=== PATIENT | female | born 1935 | race Caucasian/White ===

== ENCOUNTER 2017-08-18 01:13 | Outpatient (CLI) | payer MEDICARE, OTHER ==
[~2017-08-18 01:13] MED LIST: ASCO-205 PO; ASCO-22 PO; ASPI-611 PO; CHOL2000 PO; CHRO400T10 PO; CRAN500C3 PO; FISH OIL 500 M1 EACH PO; FLAX100025 PO; INSU100I9 SQ; INSU100V9 SQ; ISOS30TA6 PO; LACT1CAP67 PO; LEVO75TA7 PO; LISI-604 PO; MULT1TAB74 PO; RANI150C4 PO; ROSU5TAB PO; SELE200T25 PO; SIMV40TA PO; [UNRECOGNIZED DRUG - CODE] PO
== END 2017-08-18 23:59 | disposition home or self-care (01) ==
LOC: DIABETIC 01:13
PROVIDERS: ATTEND Specialist
DX: E11.65 Type 2 diabetes mellitus with hyperglycemia (principal); J44.9 Chronic obstructive pulmonary disease, unspecified; I10 Essential (primary) hypertension

== ENCOUNTER 2017-09-01 12:34 | Inpatient (IN) | payer MEDICARE, OTHER ==
[2017-09-01] VITALS (10 sets, daily range): BP systolic 132–188; BP diastolic 41–73
[~2017-09-01] VITALS: Ht 162.6 cm; Wt 74.5 kg
[2017-09-01 13:12] LABS: BASOPHILS # (AUTO) 0.1 X10'3 (0-0.2); BASOPHILS % (AUTO) 0.8 % (0-1); EOSINOPHILS # (AUTO) 0.2 X10'3 (0-0.9); EOSINOPHILS % (AUTO) 2.2 % (0-6); HEMATOCRIT 38.5 % (35.0-45.0); HEMOGLOBIN 13.4 g/dl (12.0-16.0); LYMPHOCYTES # (AUTO) 1.9 X10'3 (1.1-4.8); LYMPHOCYTES % (AUTO) 24.6 % (21-51); MEAN CORPUSCULAR HEMOGLOBIN 31.5 PG (27.0-31.0); MEAN CORPUSCULAR HGB CONC 34.9 % (33.0-36.5); MEAN CORPUSCULAR VOLUME 90.4 FL (78-98); MEAN PLATELET VOLUME 8.7 FL (7.4-10.4); MONOCYTES # (AUTO) 0.7 X10'3 (0-0.9); MONOCYTES % (AUTO) 8.8 % (2-12); NEUTROPHILS # (AUTO) 4.8 X10'3 (1.8-7.7); NEUTROPHILS % (AUTO) 63.6 % (42-75); PLATELET COUNT 292 X10'3 (140-440); RED BLOOD COUNT 4.26 X10'6 (4.20-5.60); RED CELL DISTRIBUTION WIDTH 13.8 % (11.5-14.5); WHITE BLOOD COUNT 7.5 X10'3 (4.5-11.0)
[2017-09-01 13:22] LABS: PARTIAL THROMBOPLASTIN TIME 26 SECONDS (22-32); PROTHROMBIN TIME 10.1 SECONDS (9.0-12.0)
[2017-09-01 13:36] LABS: ALANINE AMINOTRANSFERASE 30 U/L (12-78); ALBUMIN 3.4 G/DL (3.4-5.0); ALBUMIN/GLOBULIN RATIO 0.8 (1.1-1.5); ANION GAP 8 (8-16); ASPARTATE AMINO TRANSFERASE 19 U/L (10-37); BILIRUBIN,TOTAL 0.3 MG/DL (0.1-1.0); BLOOD UREA NITROGEN 25 MG/DL (7-18); BUN/CREATININE RATIO 22.7 (6.6-38.0); CHLORIDE 99 MMOL/L (99-107); GLUCOSE 128 MG/DL (70-104); POTASSIUM 4.3 MMOL/L (3.5-5.1); SODIUM 135 MMOL/L (135-145); TOTAL CARBON DIOXIDE 28.1 MMOL/L (24-32); TOTAL PROTEIN 7.5 G/DL (6.4-8.2); eGFR 48 ML/MIN
[2017-09-01 13:37] LABS: ALKALINE PHOSPHATASE 72 IU/L (46-116)
[2017-09-01] MEDS ORDERED: mag hydrox/Alum hydrox/simeth 30ml oral suspension PO PRN (14:10)
[2017-09-01] MEDS: normal saline 1000ml 1,000 ML IV SCH (14:10)
[2017-09-01] MEDS ORDERED: acetaminophen 325mg tablet PO PRN (14:10)
[2017-09-01] MEDS ORDERED: HYDROcodone/acetaminophen 5mg/325mg tablet PO PRN (14:10)
[2017-09-01] MEDS ORDERED: magnesium 2GM in 50ml NS 50 ML IV PRN (14:10)
[2017-09-01] MEDS ORDERED: potassium Cl 20 mEq SR tablet PO PRN ×2 (14:10)
[2017-09-01] MEDS ORDERED: magnesium Cl slow-release 64mg tablet PO PRN (14:10)
[2017-09-01] MEDS ORDERED: magnesium 4gm in 100ml NS 100 ML IV PRN (14:10)
[2017-09-01] MEDS ORDERED: potassium Cl 40MEQ/NS 500ml 500 ML IV PRN ×2 (14:10)
[2017-09-01] MEDS ORDERED: magnesium hydroxide 30ml (MOM) UD suspension PO PRN (14:10)
[2017-09-01] MEDS ORDERED: HYDROcodone/acetaminophen 10/325mg tab PO PRN (14:10)
[2017-09-01] MEDS ORDERED: ondansetron/PF 4mg/2ml inj IV PRN (14:10)
[2017-09-01] MEDS ORDERED: morphine 2 MG/ML inj. syringe IV PRN ×2 (14:10)
[2017-09-01] MEDS ORDERED: enoxaparin 100mg/ml syringe SUBCUT ONE (14:15)
[2017-09-01] MEDS ORDERED: normal saline 1000ML IV soln IVB ONE (14:15)
[2017-09-01] MEDS ORDERED: nitroGLYCERIN 0.2mg/hour patch TD ONE (14:15)
[2017-09-01] MEDS ORDERED: dextrose 50%-water 50ml dispensing syringe IV PRN ×2 (14:20)
[2017-09-01] MEDS ORDERED: dextrose ORAL solution 15 GM/59 ML bottle PO PRN ×2 (14:20)
[2017-09-01] MEDS ORDERED: MESSAGE TO PHARMACY PO ONE (14:20)
[2017-09-01] MEDS ORDERED: glucagon, human recombinant 1mg kit SUBCUT PRN (14:20)
[2017-09-01] MEDS ORDERED: insulin Lispro (HumaLOG) vial - multi-dose SQ SCH (14:20)
[2017-09-01] MEDS ORDERED: traMADol 50MG tablet PO PRN ×2 (14:50)
[2017-09-01 15:09] LABS: HEMOGLOBIN A1C 7.4 % (4.5-6.2)
[2017-09-01] MEDS ORDERED: nitroGLYCERIN-Tridil 50MG/D5W 250 ML IV ONE (16:49)
[2017-09-01] MEDS ORDERED: iohexol 350 MG/ML 50ML vial IV ONE (16:50)
[2017-09-01] MEDS ORDERED: LIDOcaine 1%/PF (10mg/ml) 5ml vial ONE ×3 (16:50→17:58)
[2017-09-01] MEDS ORDERED: heparin 1,000unit/ml 10ml vial 10 ML ONE (16:51)
[2017-09-01] MEDS ORDERED: iohexol 350MG/ML 100ml bottle IV ONE (16:51)
[2017-09-01] MEDS ORDERED: midazolam 2 mg/2 ml injection ONE (17:18)
[2017-09-01] MEDS ORDERED: fentaNYL/PF 50MCG/1 ML 2ML syringe ONE (17:18)
[2017-09-01] MEDS: lactobacillus rhamnosus 10,000 MMU CELLS/CAPSULE PO SCH (17:30)
[2017-09-01] MEDS ORDERED: diltiazem 5mg/ml 5ml inj. IV ONE (18:33)
[2017-09-01 18:40] LABS: ISTAT Hct MIX 34 %PCV (35-48); ISTAT O2 SATURATION MIX VENOUS 60 % (60-80); ISTAT SOURCE MIX
[2017-09-01] MEDS ORDERED: heparin, porcine 5000 units/ml vial SQ SCH (20:00)
[2017-09-01] MEDS ORDERED: acetylcysteine 200 MG/ml 4ml vial PO ONE (20:00)
[2017-09-01] MEDS ORDERED: sodium bicarbonate (8.4%) inj. 150 MEQ in sodium chloride 0.45% 1,000 ML IV ONE (20:35)
[2017-09-01] MEDS: docusate sod 100mg capsule PO SCH (20:58)
[2017-09-01] MEDS ORDERED: insulin glargine (Lantus) pen - multi-dose SQ SCH (21:00)
[2017-09-01] MEDS ORDERED: temazepam 15mg capsule PO PRN (21:00)
[2017-09-01] MEDS: acetylcysteine 200 MG/ml 4ml vial PO SCH (21:22)
[2017-09-01] MEDS: acetaminophen 325mg tablet PO PRN (22:25)
[2017-09-02 01:09] LABS: BASOPHILS # (AUTO) 0.1 X10'3 (0-0.2); BASOPHILS % (AUTO) 0.9 % (0-1); EOSINOPHILS # (AUTO) 0.1 X10'3 (0-0.9); EOSINOPHILS % (AUTO) 1.2 % (0-6); HEMATOCRIT 34.8 % (35.0-45.0); HEMOGLOBIN 12.2 g/dl (12.0-16.0); LYMPHOCYTES # (AUTO) 2.1 X10'3 (1.1-4.8); LYMPHOCYTES % (AUTO) 22.1 % (21-51); MEAN CORPUSCULAR HEMOGLOBIN 31.8 PG (27.0-31.0); MEAN CORPUSCULAR VOLUME 90.9 FL (78-98); MONOCYTES # (AUTO) 0.9 X10'3 (0-0.9); MONOCYTES % (AUTO) 9.4 % (2-12); NEUTROPHILS # (AUTO) 6.1 X10'3 (1.8-7.7); NEUTROPHILS % (AUTO) 66.4 % (42-75); PLATELET COUNT 239 X10'3 (140-440); RED BLOOD COUNT 3.83 X10'6 (4.20-5.60); RED CELL DISTRIBUTION WIDTH 12.9 % (11.5-14.5); WHITE BLOOD COUNT 9.3 X10'3 (4.5-11.0)
[2017-09-02 01:16] LABS: PROTHROMBIN TIME 10.7 SECONDS (9.0-12.0)
[2017-09-02 01:22] LABS: ALANINE AMINOTRANSFERASE 19 U/L (12-78); ALBUMIN 2.6 G/DL (3.4-5.0); ALBUMIN/GLOBULIN RATIO 0.7 (1.1-1.5); ALKALINE PHOSPHATASE 59 IU/L (46-116); ANION GAP 7 (8-16); ASPARTATE AMINO TRANSFERASE 18 U/L (10-37); BILIRUBIN,TOTAL 0.2 MG/DL (0.1-1.0); BLOOD UREA NITROGEN 24 MG/DL (7-18); BUN/CREATININE RATIO 23.1 (6.6-38.0); CHLORIDE 105 MMOL/L (99-107); CHOL/HDL RATIO 2.6 (0.00-4.99); CHOLESTEROL 160 MG/DL (0-200); CREATININE 1.04 MG/DL (0.40-0.90); GLUCOSE 185 MG/DL (70-104); HDL CHOLESTEROL 62 MG/DL (35-60); LDL CHOLESTEROL 82 MG/DL (50-100); MAGNESIUM 1.4 MG/DL (1.5-2.4); POTASSIUM 3.5 MMOL/L (3.5-5.1); SODIUM 140 MMOL/L (135-145); TOTAL CARBON DIOXIDE 28.2 MMOL/L (24-32); TOTAL PROTEIN 6.1 G/DL (6.4-8.2); TRIGLYCERIDES 197 MG/DL (20-135); eGFR 51 ML/MIN
[2017-09-02] MEDS: normal saline 1000ml 1,000 ML IV SCH ×2 (03:30→17:21)
[2017-09-02 06:00] VITALS: BP 138/52
[2017-09-02] MEDS: lactobacillus rhamnosus 10,000 MMU CELLS/CAPSULE PO SCH ×2 (07:55→17:20)
[2017-09-02] MEDS: levoTHYROXINE 75mcg tablet PO SCH (07:55)
[2017-09-02] MEDS: aspirin 81mg tab.chew PO SCH (07:55)
[2017-09-02] MEDS: docusate sod 100mg capsule PO SCH ×2 (07:55→21:39)
[2017-09-02] MEDS: acetylcysteine 200 MG/ml 4ml vial PO SCH ×2 (07:56→20:00)
[2017-09-02] MEDS: K and/or MAG REPLACEMENT MC SCH (07:59)
[2017-09-02] MEDS ORDERED: isosorbide mononitrate 30mg tab.SR.24H PO SCH ×2 (08:00)
[2017-09-02] MEDS ORDERED: lisinopril 5mg tablet PO SCH (08:00)
[2017-09-02] MEDS: atorvastatin 20mg tablet PO SCH (08:00)
[2017-09-02 11:00] VITALS: BP 115/62
[2017-09-02] MEDS: acetaminophen 325mg tablet PO PRN (11:30)
[2017-09-02 12:54] LABS: BASOPHILS # (AUTO) 0.1 X10'3 (0-0.2); EOSINOPHILS # (AUTO) 0.2 X10'3 (0-0.9); EOSINOPHILS % (AUTO) 2.2 % (0-6); HEMATOCRIT 34.8 % (35.0-45.0); HEMOGLOBIN 12.2 g/dl (12.0-16.0); LYMPHOCYTES # (AUTO) 1.7 X10'3 (1.1-4.8); LYMPHOCYTES % (AUTO) 19.6 % (21-51); MEAN CORPUSCULAR HEMOGLOBIN 32.3 PG (27.0-31.0); MEAN CORPUSCULAR VOLUME 92.4 FL (78-98); MEAN PLATELET VOLUME 8.9 FL (7.4-10.4); MONOCYTES # (AUTO) 0.8 X10'3 (0-0.9); MONOCYTES % (AUTO) 8.8 % (2-12); NEUTROPHILS # (AUTO) 5.9 X10'3 (1.8-7.7); NEUTROPHILS % (AUTO) 68.4 % (42-75); PLATELET COUNT 218 X10'3 (140-440); RED BLOOD COUNT 3.77 X10'6 (4.20-5.60); WHITE BLOOD COUNT 8.7 X10'3 (4.5-11.0)
[2017-09-02 13:05] LABS: D-DIMER 2.28 MG/L FEU (0-0.50); PARTIAL THROMBOPLASTIN TIME 23 SECONDS (22-32); PROTHROMBIN TIME 10.7 SECONDS (9.0-12.0)
[2017-09-02 13:08] LABS: ALBUMIN 2.8 G/DL (3.4-5.0); ANION GAP 8 (8-16); BLOOD UREA NITROGEN 21 MG/DL (7-18); BUN/CREATININE RATIO 16.5 (6.6-38.0); CALCIUM 8.9 MG/DL (8.5-10.1); CHLORIDE 102 MMOL/L (99-107); CREATININE 1.27 MG/DL (0.40-0.90); GLUCOSE 154 MG/DL (70-104); POTASSIUM 3.5 MMOL/L (3.5-5.1); SODIUM 139 MMOL/L (135-145); TROPONIN I 0.07 NG/ML (0.0-0.05); eGFR 40 ML/MIN
[2017-09-02] MEDS ORDERED: normal saline 1000ml 1,000 ML IV SCH (13:50)
[2017-09-02] MEDS ORDERED: normal saline 500ml IV soln 1,000 ML IV ONE (13:50)
[2017-09-02 15:00] VITALS: BP 115/39
[2017-09-02 19:00] VITALS: BP 117/46
[2017-09-02 23:00] VITALS: BP 114/56
[2017-09-03 03:00] VITALS: BP 121/37
[2017-09-03] MEDS: acetaminophen 325mg tablet PO PRN ×2 (03:05→23:10)
[2017-09-03 06:00] VITALS: BP 109/36
[2017-09-03 06:05] LABS: BASOPHILS % (AUTO) 0.5 % (0-1); EOSINOPHILS # (AUTO) 0.3 X10'3 (0-0.9); EOSINOPHILS % (AUTO) 3.6 % (0-6); HEMATOCRIT 29.7 % (35.0-45.0); HEMOGLOBIN 10.2 g/dl (12.0-16.0); LYMPHOCYTES # (AUTO) 1.4 X10'3 (1.1-4.8); LYMPHOCYTES % (AUTO) 18.4 % (21-51); MEAN CORPUSCULAR HEMOGLOBIN 31.4 PG (27.0-31.0); MEAN CORPUSCULAR HGB CONC 34.4 % (33.0-36.5); MEAN CORPUSCULAR VOLUME 91.3 FL (78-98); MEAN PLATELET VOLUME 8.9 FL (7.4-10.4); MONOCYTES # (AUTO) 0.8 X10'3 (0-0.9); MONOCYTES % (AUTO) 11.4 % (2-12); NEUTROPHILS # (AUTO) 4.9 X10'3 (1.8-7.7); NEUTROPHILS % (AUTO) 66.1 % (42-75); PLATELET COUNT 202 X10'3 (140-440); RED BLOOD COUNT 3.25 X10'6 (4.20-5.60); RED CELL DISTRIBUTION WIDTH 14.1 % (11.5-14.5); WHITE BLOOD COUNT 7.4 X10'3 (4.5-11.0)
[2017-09-03] MEDS: normal saline 1000ml 1,000 ML IV SCH ×2 (06:10→19:30)
[2017-09-03 06:16] LABS: PROTHROMBIN TIME 10.7 SECONDS (9.0-12.0)
[2017-09-03 06:22] LABS: ALANINE AMINOTRANSFERASE 17 U/L (12-78); ALBUMIN 2.4 G/DL (3.4-5.0); ALBUMIN/GLOBULIN RATIO 0.8 (1.1-1.5); ALKALINE PHOSPHATASE 47 IU/L (46-116); ANION GAP 4 (8-16); ASPARTATE AMINO TRANSFERASE 16 U/L (10-37); BILIRUBIN,TOTAL 0.3 MG/DL (0.1-1.0); BLOOD UREA NITROGEN 19 MG/DL (7-18); BUN/CREATININE RATIO 15.8 (6.6-38.0); CALCIUM 8.2 MG/DL (8.5-10.1); CHLORIDE 109 MMOL/L (99-107); GLUCOSE 140 MG/DL (70-104); MAGNESIUM 1.6 MG/DL (1.5-2.4); SODIUM 142 MMOL/L (135-145); TOTAL CARBON DIOXIDE 28.9 MMOL/L (24-32); TOTAL PROTEIN 5.6 G/DL (6.4-8.2); eGFR 43 ML/MIN
[2017-09-03] MEDS: atorvastatin 20mg tablet PO SCH (08:00)
[2017-09-03] MEDS: K and/or MAG REPLACEMENT MC SCH (08:00)
[2017-09-03] MEDS: isosorbide mononitrate 30mg tab.SR.24H PO SCH (08:42)
[2017-09-03 08:45] LABS: ISTAT HGB ART 11.2 g/dl (12.0-16.0); ISTAT Hct ART 33 %PCV (35-48); ISTAT O2 SATURATION ARTERIAL 96 % (95-98); ISTAT SOURCE BLNK
[2017-09-03] MEDS: aspirin 81mg tab.chew PO SCH (08:46)
[2017-09-03] MEDS: docusate sod 100mg capsule PO SCH ×2 (08:46→21:06)
[2017-09-03] MEDS: lactobacillus rhamnosus 10,000 MMU CELLS/CAPSULE PO SCH ×2 (08:46→17:15)
[2017-09-03] MEDS: levoTHYROXINE 75mcg tablet PO SCH (08:47)
[2017-09-03] MEDS: acetylcysteine 200 MG/ml 4ml vial PO SCH ×2 (08:47→20:00)
[2017-09-03 11:00] VITALS: BP 129/38
[2017-09-03 15:00] VITALS: BP 125/46
[2017-09-03 19:00] VITALS: BP 137/44
[2017-09-03] MEDS: diazepam 2mg tablet PO PRN (21:11)
[2017-09-03 23:00] VITALS: BP 142/60
[2017-09-04] VITALS (12 sets, daily range): BP systolic 90–146; BP diastolic 41–107
[2017-09-04 06:41] LABS: BASOPHILS # (AUTO) 0.1 X10'3 (0-0.2); BASOPHILS % (AUTO) 0.7 % (0-1); EOSINOPHILS # (AUTO) 0.1 X10'3 (0-0.9); EOSINOPHILS % (AUTO) 1.2 % (0-6); HEMOGLOBIN 11.1 g/dl (12.0-16.0); LYMPHOCYTES # (AUTO) 1.2 X10'3 (1.1-4.8); LYMPHOCYTES % (AUTO) 11.2 % (21-51); MEAN CORPUSCULAR HEMOGLOBIN 31.2 PG (27.0-31.0); MEAN CORPUSCULAR HGB CONC 33.7 % (33.0-36.5); MEAN CORPUSCULAR VOLUME 92.6 FL (78-98); MEAN PLATELET VOLUME 9.4 FL (7.4-10.4); MONOCYTES # (AUTO) 1.2 X10'3 (0-0.9); NEUTROPHILS % (AUTO) 75.9 % (42-75); PLATELET COUNT 207 X10'3 (140-440); RED BLOOD COUNT 3.56 X10'6 (4.20-5.60); RED CELL DISTRIBUTION WIDTH 13.7 % (11.5-14.5); WHITE BLOOD COUNT 10.5 X10'3 (4.5-11.0)
[2017-09-04 06:52] LABS: PROTHROMBIN TIME 10.3 SECONDS (9.0-12.0)
[2017-09-04 06:57] LABS: ANION GAP 10 (8-16); BLOOD UREA NITROGEN 20 MG/DL (7-18); CHLORIDE 104 MMOL/L (99-107); CREATININE 1.14 MG/DL (0.40-0.90); GLUCOSE 184 MG/DL (70-104); POTASSIUM 3.6 MMOL/L (3.5-5.1); SODIUM 138 MMOL/L (135-145); TOTAL CARBON DIOXIDE 23.9 MMOL/L (24-32)
[2017-09-04 06:58] LABS: ALANINE AMINOTRANSFERASE 25 U/L (12-78); ALBUMIN 2.5 G/DL (3.4-5.0); ALBUMIN/GLOBULIN RATIO 0.7 (1.1-1.5); ALKALINE PHOSPHATASE 55 IU/L (46-116); ASPARTATE AMINO TRANSFERASE 18 U/L (10-37); BILIRUBIN,TOTAL 0.5 MG/DL (0.1-1.0); BUN/CREATININE RATIO 17.5 (6.6-38.0); MAGNESIUM 1.9 MG/DL (1.5-2.4); TOTAL PROTEIN 6.1 G/DL (6.4-8.2); eGFR 46 ML/MIN
[2017-09-04] MEDS ORDERED: [UNRECOGNIZED DRUG - OTHER] IV ONE (07:24)
[2017-09-04] MEDS ORDERED: fentaNYL/PF 50MCG/1 ML 2ML syringe ONE (07:24)
[2017-09-04] MEDS ORDERED: CEFAZOLIN IV ONE (07:24)
[2017-09-04] MEDS ORDERED: LIDOcaine 1.5% w/epinephrine 1:200,000 5ml ampul ONE (07:25)
[2017-09-04] MEDS ORDERED: ceFAZolin 1000mg inj ONE (07:25)
[2017-09-04] MEDS ORDERED: heparin 1,000 UNITS/NS 500ml 0 ML ONE (07:25)
[2017-09-04] MEDS ORDERED: midazolam 2 mg/2 ml injection ONE (07:25)
[2017-09-04] MEDS: diazepam 2mg tablet PO PRN ×3 (07:34→22:11)
[2017-09-04] MEDS: cefazolin 1gm/NS 100mL 100 ML IV SCH ×2 (07:45→16:00)
[2017-09-04] MEDS ORDERED: iohexol 350 MG/ML 50ML vial IV ONE (07:49)
[2017-09-04] MEDS: atorvastatin 20mg tablet PO SCH (08:00)
[2017-09-04] MEDS: isosorbide mononitrate 30mg tab.SR.24H PO SCH (08:00)
[2017-09-04] MEDS: K and/or MAG REPLACEMENT MC SCH (08:00)
[2017-09-04] MEDS: normal saline 1000ml 1,000 ML IV SCH ×2 (08:50→22:10)
[2017-09-04] MEDS ORDERED: furosemide 40mg/4ml inj ONE (09:39)
[2017-09-04] MEDS ORDERED: albuterol 2.5 MG/3 ML nebule NEB ONE (09:50)
[2017-09-04] MEDS ORDERED: HYDROcodone/acetaminophen 5mg/325mg tablet PO PRN (11:30)
[2017-09-04] MEDS ORDERED: HYDROcodone/acetaminophen 10/325mg tab PO PRN (11:30)
[2017-09-04] MEDS ORDERED: furosemide 20 MG/2 ML vial IV ONE (11:35)
[2017-09-04] MEDS ORDERED: normal saline 250ml IV soln 250 ML IV PRN (11:35)
[2017-09-04] MEDS ORDERED: potassium Cl 20 mEq SR tablet PO ONE (11:35)
[2017-09-04] MEDS ORDERED: diazepam 2mg tablet PO PRN (11:40)
[2017-09-04] MEDS: acetaminophen 325mg tablet PO PRN ×3 (11:46→22:11)
[2017-09-04] MEDS: acetylcysteine 200 MG/ml 4ml vial PO SCH ×2 (11:54→20:42)
[2017-09-04] MEDS: levoTHYROXINE 75mcg tablet PO SCH (11:56)
[2017-09-04] MEDS: aspirin 81mg tab.chew PO SCH (11:57)
[2017-09-04] MEDS: docusate sod 100mg capsule PO SCH ×2 (11:57→20:42)
[2017-09-04] MEDS: lactobacillus rhamnosus 10,000 MMU CELLS/CAPSULE PO SCH ×2 (11:58→17:21)
[2017-09-04] MEDS: ceFAZolin 1GM/NS- ADD-VANTAGE 1 GM in NS 100ML IV SCH ×2 (15:32→22:11)
[2017-09-04] MEDS: sod chloride 0.9% 10ml flush syringe IV SCH (16:00)
[2017-09-05] MEDS: cefazolin 1gm/NS 100mL 100 ML IV SCH
[2017-09-05 02:00] VITALS: BP 136/58
[2017-09-05 06:00] VITALS: BP 151/64
[2017-09-05] MEDS: sod chloride 0.9% 10ml flush syringe IV SCH ×3 (06:32→16:00)
[2017-09-05] MEDS: atorvastatin 20mg tablet PO SCH ×2 (06:32→08:23)
[2017-09-05] MEDS: ceFAZolin 1GM/NS- ADD-VANTAGE 1 GM in NS 100ML IV SCH (07:00)
[2017-09-05 07:31] LABS: BASOPHILS % (AUTO) 0.3 % (0-1); EOSINOPHILS # (AUTO) 0.1 X10'3 (0-0.9); EOSINOPHILS % (AUTO) 1.1 % (0-6); HEMATOCRIT 31.3 % (35.0-45.0); HEMOGLOBIN 10.6 g/dl (12.0-16.0); LYMPHOCYTES # (AUTO) 1.1 X10'3 (1.1-4.8); LYMPHOCYTES % (AUTO) 11.2 % (21-51); MEAN CORPUSCULAR HEMOGLOBIN 31.2 PG (27.0-31.0); MEAN CORPUSCULAR VOLUME 91.7 FL (78-98); MEAN PLATELET VOLUME 9.3 FL (7.4-10.4); MONOCYTES # (AUTO) 0.9 X10'3 (0-0.9); MONOCYTES % (AUTO) 9.7 % (2-12); NEUTROPHILS # (AUTO) 7.6 X10'3 (1.8-7.7); NEUTROPHILS % (AUTO) 77.7 % (42-75); PLATELET COUNT 180 X10'3 (140-440); RED BLOOD COUNT 3.41 X10'6 (4.20-5.60); RED CELL DISTRIBUTION WIDTH 14.2 % (11.5-14.5); WHITE BLOOD COUNT 9.8 X10'3 (4.5-11.0)
[2017-09-05 07:37] LABS: INR 1.1 INR; PROTHROMBIN TIME 10.9 SECONDS (9.0-12.0)
[2017-09-05 07:55] LABS: ALANINE AMINOTRANSFERASE 34 U/L (12-78); ALBUMIN 2.3 G/DL (3.4-5.0); ALBUMIN/GLOBULIN RATIO 0.6 (1.1-1.5); ALKALINE PHOSPHATASE 64 IU/L (46-116); ANION GAP 11 (8-16); ASPARTATE AMINO TRANSFERASE 39 U/L (10-37); BILIRUBIN,TOTAL 0.4 MG/DL (0.1-1.0); BLOOD UREA NITROGEN 27 MG/DL (7-18); BUN/CREATININE RATIO 23.7 (6.6-38.0); CALCIUM 7.9 MG/DL (8.5-10.1); CHLORIDE 103 MMOL/L (99-107); CREATININE 1.14 MG/DL (0.40-0.90); GLUCOSE 182 MG/DL (70-104); MAGNESIUM 1.8 MG/DL (1.5-2.4); POTASSIUM 3.9 MMOL/L (3.5-5.1); SODIUM 137 MMOL/L (135-145); TOTAL CARBON DIOXIDE 23.3 MMOL/L (24-32); TOTAL PROTEIN 6.2 G/DL (6.4-8.2); eGFR 46 ML/MIN
[2017-09-05] MEDS: K and/or MAG REPLACEMENT MC SCH (08:00)
[2017-09-05] MEDS: acetaminophen 325mg tablet PO PRN ×2 (08:11→14:12)
[2017-09-05] MEDS: docusate sod 100mg capsule PO SCH (08:15)
[2017-09-05] MEDS: lactobacillus rhamnosus 10,000 MMU CELLS/CAPSULE PO SCH (08:15)
[2017-09-05] MEDS: aspirin 81mg tab.chew PO SCH (08:16)
[2017-09-05] MEDS: isosorbide mononitrate 30mg tab.SR.24H PO SCH (08:16)
[2017-09-05] MEDS: diazepam 2mg tablet PO PRN ×2 (08:16→14:13)
[2017-09-05] MEDS: levoTHYROXINE 75mcg tablet PO SCH (08:16)
[2017-09-05] MEDS ORDERED: potassium Cl 20 mEq SR tablet PO SCH (09:20)
[2017-09-05] MEDS ORDERED: furosemide 40 MG/4 ML oral solution UD cup PO SCH (09:20)
[2017-09-05] MEDS ORDERED: furosemide 40mg tablet PO SCH (09:55)
[2017-09-05 11:00] VITALS: BP 107/46
[2017-09-05] MEDS ORDERED: DIAZ2TAB3 PO (12:53)
[2017-09-05] MEDS ORDERED: TRAM50TA2 PO (12:53)
[2017-09-05] MEDS ORDERED: HYDR-3972 PO (12:53)
[2017-09-05] MEDS ORDERED: FURO40TA4 PO (12:53)
[2017-09-05] MEDS ORDERED: POTA-82 PO (13:04)
[2017-09-05] MEDS ORDERED: CEPH-572 PO (13:25)
[2017-09-05] MEDS ORDERED: ISOS30TA6 PO (13:28)
[2017-09-05 15:00] VITALS: BP 126/60
== END 2017-09-05 17:00 | disposition home or self-care (01) | DRG 243 ==
LOC: ER 12:35 → ED HOLD 14:10 → EDBEDREQ 15:16 → PCU 3S 15:59 → CMPBEDREQ 19:43
PROVIDERS: ADMIT Internal Medicine; ATTEND Internal Medicine Nephrology
PROC: 4A023N6 Measurement of Cardiac Sampling and Pressure, Right Heart, Percutaneous Approach (ICD-10-PCS; principal; 2017-09-01)
PROC: B2111ZZ Fluoroscopy of Multiple Coronary Arteries using Low Osmolar Contrast (ICD-10-PCS; 2017-09-01)
PROC: 0JH606Z Insertion of Pacemaker, Dual Chamber into Chest Subcutaneous Tissue and Fascia, Open Approach (ICD-10-PCS; 2017-09-04)
PROC: 02H63JZ Insertion of Pacemaker Lead into Right Atrium, Percutaneous Approach (ICD-10-PCS; 2017-09-04)
PROC: 02HK3JZ Insertion of Pacemaker Lead into Right Ventricle, Percutaneous Approach (ICD-10-PCS; 2017-09-04)
DX: I25.110 Atherosclerotic heart disease of native coronary artery with unstable angina pectoris (principal); N17.9 Acute kidney failure, unspecified; I44.2 Atrioventricular block, complete; R06.03 Acute respiratory distress; N18.3 Chronic kidney disease, stage 3 (moderate); E11.22 Type 2 diabetes mellitus with diabetic chronic kidney disease; I13.0 Hypertensive heart and chronic kidney disease with heart failure and stage 1 through stage 4 chronic kidney disease, or unspecified chronic kidney disease; I50.32 Chronic diastolic (congestive) heart failure; I44.1 Atrioventricular block, second degree; I95.2 Hypotension due to drugs; T46.4X5A Adverse effect of angiotensin-converting-enzyme inhibitors, initial encounter; T46.3X5A Adverse effect of coronary vasodilators, initial encounter; Y92.238 Other place in hospital as the place of occurrence of the external cause; E11.51 Type 2 diabetes mellitus with diabetic peripheral angiopathy without gangrene; G47.30 Sleep apnea, unspecified; K21.9 Gastro-esophageal reflux disease without esophagitis; F41.9 Anxiety disorder, unspecified; G54.0 Brachial plexus disorders; E78.5 Hyperlipidemia, unspecified; I48.2 Chronic atrial fibrillation; E03.9 Hypothyroidism, unspecified; M79.7 Fibromyalgia; I70.8 Atherosclerosis of other arteries; Z79.4 Long term (current) use of insulin; Z79.82 Long term (current) use of aspirin; Z79.899 Other long term (current) drug therapy; Z88.5 Allergy status to narcotic agent; Z88.2 Allergy status to sulfonamides; Z86.73 Personal history of transient ischemic attack (TIA), and cerebral infarction without residual deficits; Z87.891 Personal history of nicotine dependence
CPT/HCPCS: 33208; 36415; 71045; 71046; 71250; 80048; 80053; 80061; 82803; 82948; 83036; 83605; 83735; 83880; 84443; 84484; 85014; 85025; 85379; 85610; 85730; 87040; 87070; 93005; 93306; 93456; 94640; 97116; 97161; 97530; 99152; 99153; 99285; A4620; A6257; A6258; A6449; C1769; C1785; C1898; J0690; J1644; J1815; J1940; J2001; J2250; J3010; J3490; J7030; Q9967

== ENCOUNTER 2017-11-17 04:57 | Outpatient (CLI) | payer MEDICARE, OTHER ==
[~2017-11-17 04:57] MED LIST changes: +DIAZ2TAB3 PO; +FURO40TA4 PO; +HYDR-3972 PO; -LISI-604 PO; +POTA-82 PO; +TRAM50TA2 PO
== END 2017-11-17 23:59 | disposition home or self-care (01) ==
LOC: DIABETIC 04:57
PROVIDERS: ATTEND Specialist
DX: E11.65 Type 2 diabetes mellitus with hyperglycemia (principal); I10 Essential (primary) hypertension; J44.9 Chronic obstructive pulmonary disease, unspecified
CPT/HCPCS: G0108

== ENCOUNTER 2018-03-09 02:20 | Outpatient (CLI) | payer MEDICARE, OTHER | END 2018-03-09 23:59 | disposition home or self-care (01) | LOC: DIABETIC 02:20 | PROVIDERS: ATTEND Specialist | DX: E11.65 Type 2 diabetes mellitus with hyperglycemia (principal); I10 Essential (primary) hypertension; J44.9 Chronic obstructive pulmonary disease, unspecified; M85.80 Other specified disorders of bone density and structure, unspecified site; Z79.82 Long term (current) use of aspirin; Z79.899 Other long term (current) drug therapy; Z79.4 Long term (current) use of insulin; Z87.891 Personal history of nicotine dependence | CPT/HCPCS: G0108 ==

== ENCOUNTER 2018-05-18 02:24 | Outpatient (CLI) | payer MEDICARE, OTHER ==
[~2018-05-18 02:24] MED LIST changes: -FLAX100025 PO; +FLAX10007 PO
== END 2018-05-18 23:59 | disposition home or self-care (01) ==
LOC: DIABETIC 02:24
PROVIDERS: ATTEND Specialist
DX: E11.65 Type 2 diabetes mellitus with hyperglycemia (principal); Z79.899 Other long term (current) drug therapy; Z79.82 Long term (current) use of aspirin
CPT/HCPCS: G0108